=== PATIENT | female | born 1990 | race Caucasian/White ===

== ENCOUNTER 2017-03-09 18:44 | Emergency (ER) | payer SELFPAY ==
[2017-03-09 19:32] VITALS: BP 132/69; PULSE 78; RESP 16; TEMP 98.3; O2SAT 99
--- NOTE | 2017-03-09 20:22 | ED PDOC ---
Lower Extremity Pain/Injury Time Seen by Provider: 03/09/17 20:11 Chief Complaint (Nursing): Lower Extremity Problem/Injury Chief Complaint (Provider): Lower Extremity Problem/Injury History Per: Patient History/Exam Limitations: no limitations Onset/Duration Of Symptoms: Days Current Symptoms Are (Timing): Still Present Severity: Moderate Additional Complaint(s): Patient is a 26 year old female who presents to ED for evaluation of left ankle pain that began yesterday. Patient reports that yesterday she woke up with atraumatic left ankle pain, notes that she did do a significant amount of walking the day prior. Although she did a large amount of walking, she denies any trauma including twisting. States that the pain worsened today which prompted ED visit. Denies calf pain, trauma, swelling or SOB Past Medical History Reviewed: Historical Data, Nursing Documentation, Vital Signs Vital Signs: Last Vital Signs Temp 98.3 F 03/09/17 19:30 Pulse 78 03/09/17 19:30 Resp 16 03/09/17 19:30 BP 132/69 03/09/17 19:30 Pulse Ox 99 03/09/17 19:30 - Medical History PMH: Hypothyroidism Denies: Chronic Kidney Disease - Surgical History Surgical History: No Surg Hx - Family History Family History: States: No Known Family Hx - Home Medications Home Medications: Ambulatory Orders Medication Instructions Recorded No Known Home Med 04/11/16 - Allergies Allergies/Adverse Reactions: Allergies Allergy/AdvReac Type Severity Reaction Status Date / Time No Known Allergies Allergy Verified 03/09/17 19:30 Review of Systems Constitutional: Negative for: Fever Cardiovascular: Negative for: Chest Pain, Palpitations Respiratory: Negative for: Shortness of Breath Musculoskeletal: Positive for: Foot Pain. Negative for: Back Pain, Leg Pain Neurological: Negative for: Weakness, Numbness Physical Exam - Reviewed Nursing Documentation Reviewed: Yes Vital Signs Reviewed: Yes - Physical Exam Appears: Positive for: Non-toxic, No Acute Distress Skin: Positive for: Normal Color, Warm Eye Exam: Positive for: Normal appearance Neck: Positive for: Normal Pulses-Dorsalis Pedis (L): 2+ Extremity: Positive for: Normal ROM, Tenderness (LLE: Tenderness to medial left distal leg, just superior to medial malleolus, no malleola tenderness, swell, warmth or erythema), Capillary Refill (less than 2 seconds ). Negative for: Pedal Edema, Calf Tenderness (b/l), Deformity Neurologic/Psych: Positive for: Alert, Oriented. Negative for: Motor/Sensory Deficits - ECG O2 Sat by Pulse Oximetry: 99 (RA) Pulse Ox Interpretation: Normal - Radiology X-Ray: Interpreted by Me (Ankle x-ray) X-Ray Interpretation: No Acute Disease - Progress ED Course And Treament: Crutches provided. Medical Decision Making Medical Decision Making: Time: 2009 Initial Impression: Foot pain r/o fracture Initial Plan: -- Ankle Xray Scribe Attestation: Documented by Marielena James, acting as a scribe for Jr Woods PA-C. Provider Scribe Attestation: All medical record entries made by the Scribe were at my direction and personally dictated by me. I have reviewed the chart and agree that the record accurately reflects my personal performance of the history, physical exam, medical decision making, and the department course for this patient. I have also personally directed, reviewed, and agree with the discharge instructions and disposition. Disposition - Clinical Impression Clinical Impression: Ankle pain - Patient ED Disposition Is Patient to be Admitted: No - Disposition Referrals: Onesimo Villagomez DPM [Staff Provider] - Disposition: Routine/Home Disposition Time: 21:54 Condition: STABLE Instructions: Arthralgia (ED), RICE Therapy (ED), Crutch Instructions (ED) Print Language: HUNGARIAN
--- NOTE | 2017-03-10 12:05 | RAD ---
PROCEDURE: Left Ankle Radiographs. HISTORY: pain COMPARISON: None FINDINGS: BONES: Normal. No fracture. JOINTS: Normal. No osteoarthritis. Ankle mortise maintained. Talar dome intact SOFT TISSUES: Normal. OTHER FINDINGS: None. IMPRESSION: Normal left ankle radiographs.
== END 2017-03-09 21:58 | disposition home or self-care (01) ==
LOC: H.ER 18:44
DX: M25.572 Pain in left ankle and joints of left foot (principal); E03.9 Hypothyroidism, unspecified

== ENCOUNTER 2018-11-14 11:17 | Emergency (ER) | payer OTHER ==
[2018-11-14 11:26] VITALS: O2SAT 98
[2018-11-14] MEDS ORDERED: Sodium Chloride 0.9% 1,000 ML IV STA (11:51)
--- NOTE | 2018-11-14 11:53 | ED PDOC ---
HPI: Abdomen Time Seen by Provider: 11/14/18 11:29 Chief Complaint (Nursing): Abdominal Pain History Per: Patient Onset/Duration Of Symptoms: Days (2) Current Symptoms Are (Timing): Still Present Severity: Moderate Location Of Pain/Discomfort: Epigastric Quality Of Discomfort: Sharp Associated Symptoms: denies: Fever, Nausea, Vomiting, Diarrhea, Urinary Symptoms Exacerbating Factors: None Alleviating Factors: None Additional Complaint(s): Epigastric abd pain x 2 days. Denies NVD. Denies fever. Denies urinary sxs. Past Medical History Vital Signs: Last Vital Signs Temp 98.2 F 11/14/18 11:25 Pulse 79 11/14/18 11:25 Resp 14 11/14/18 11:25 BP 130/76 11/14/18 11:25 Pulse Ox 98 11/14/18 11:25 - Medical History PMH: Hypothyroidism Denies: Chronic Kidney Disease - Family History Family History: States: Unknown Family Hx - Home Medications Home Medications: Ambulatory Orders Medication Instructions Recorded Famotidine [Pepcid] 20 mg PO Q12 #20 tab 11/14/18 - Allergies Allergies/Adverse Reactions: Allergies Allergy/AdvReac Type Severity Reaction Status Date / Time No Known Allergies Allergy Verified 03/09/17 19:30 Review of Systems ROS Statement: Except As Marked, All Systems Reviewed And Found Negative Gastrointestinal: Positive for: Abdominal Pain Physical Exam - Reviewed Nursing Documentation Reviewed: Yes Vital Signs Reviewed: Yes - Physical Exam Appears: Positive for: Non-toxic, No Acute Distress Head Exam: Positive for: ATRAUMATIC, NORMAL INSPECTION, NORMOCEPHALIC Skin: Positive for: Normal Color, Warm, DRY Eye Exam: Positive for: Normal appearance, EOMI Neck: Positive for: Normal, Painless ROM Cardiovascular/Chest: Positive for: Regular Rate, Rhythm Respiratory: Positive for: CNT, Normal Breath Sounds Gastrointestinal/Abdominal: Positive for: Soft, Tenderness (Epigastric) Extremity: Positive for: Normal ROM Neurologic/Psych: Positive for: Alert, Oriented - Laboratory Results Result Diagrams: 11/14/18 12:20 11/14/18 13:20 - ECG O2 Sat by Pulse Oximetry: 98 Disposition - Clinical Impression Clinical Impression: Gastritis - Patient ED Disposition Is Patient to be Admitted: No Counseled Patient/Family Regarding: Studies Performed, Diagnosis, Need For Followup, Rx Given - Disposition Referrals: [facility] [Outside] Disposition: Routine/Home Disposition Time: 14:16 Condition: FAIR Prescriptions: Famotidine [Pepcid] 20 mg PO Q12 #20 tab Instructions: Gastritis Forms: [facility] (Nepali)
[2018-11-14 12:48] LABS: BASO % 0.6 % (0.0-2.0); EOS # 0.1 K/uL (0.0-0.7); EOS % 0.9 % (0.0-4.0); HEMOGLOBIN 14.1 g/dL (12.0-16.0); LYMPH # 1.6 K/uL (1.0-4.3); LYMPH % 26.2 % (20.0-40.0); MEAN CELL VOLUME 83.6 fl (81.0-99.0); MEAN CORPUSCULAR HGB CONC 33.5 g/dL (33.0-37.0); MONO # 0.4 K/uL (0.0-0.8); NEUT # 4.1 K/uL (1.8-7.0); NEUT % 66.3 % (50.0-75.0); RBC 5.03 Mil/uL (3.80-5.20); RED CELL DISTRIBUTION WIDTH 13.8 % (11.5-14.5); WHITE BLOOD COUNT 6.3 K/uL (4.8-10.8)
[2018-11-14 14:11] LABS: ALB/GLOB RATIO 1.2 (1.0-2.1); ALBUMIN 4.1 g/dL (3.5-5.0); ALT/SGPT 37 U/L (9-52); AST/SGOT 45 U/L (14-36); BLOOD UREA NITROGEN 11 mg/dl (7-17); CALCIUM 8.9 mg/dL (8.4-10.2); GFR NON-AFRICAN AMERICAN > 60
[2018-11-14 18:02] VITALS: BP 108/64; PULSE 70; RESP 18; TEMP 98.1
== END 2018-11-14 14:15 | disposition home or self-care (01) ==
LOC: H.ER 11:17
DX: K29.70 Gastritis, unspecified, without bleeding (principal); E03.9 Hypothyroidism, unspecified
CPT/HCPCS: 80053; 85025; 96374; 99284; J7030

== ENCOUNTER 2019-01-31 16:45 | Emergency (ER) | payer OTHER ==
[2019-01-31 17:30] VITALS: RESP 18
[2019-01-31] MEDS ORDERED: Iohexol 240 (50 ml) PO ONE (17:42)
[2019-01-31] MEDS ORDERED: Iohexol 240 (50 ml) ONE (17:54)
[2019-01-31 18:13] LABS: SQUAMOUS EPITHIAL 1 /hpf (0-5); URINE BILIRUBIN NEGATIVE (NEGATIVE); URINE BLOOD NEGATIVE (NEGATIVE); URINE CLARITY SLIGHTY-CLOUDY (Clear); URINE COLOR YELLOW (YELLOW); URINE GLUCOSE (UA) NEG (NEGATIVE); URINE LEUKOCYTE ESTERASE NEG Leu/uL (Negative); URINE PROTEIN NEGATIVE (NEGATIVE); URINE UROBILINOGEN 0.2-1.0 mg/dL (0.2-1.0)
[2019-01-31] MEDS: Sodium Chloride 0.9% 1,000 ML IV SCH ×5 (18:21→21:59)
[2019-01-31 18:33] LABS: BASO # 0.1 K/uL (0.0-0.2); BASO % 1.2 % (0.0-2.0); EOS # 0.2 K/uL (0.0-0.7); EOS % 2.6 % (0.0-4.0); HEMOGLOBIN 13.3 g/dL (12.0-16.0); LYMPH # 2.6 K/uL (1.0-4.3); LYMPH % 33.6 % (20.0-40.0); MEAN CELL VOLUME 80.9 fl (81.0-99.0); MEAN CORPUSCULAR HEMOGLOBIN 26.5 pg (27.0-31.0); MEAN CORPUSCULAR HGB CONC 32.7 g/dL (33.0-37.0); MEAN PLATELET VOLUME 8.1 fl (7.2-11.7); MONO # 0.4 K/uL (0.0-0.8); MONO % 4.7 % (0.0-10.0); NEUT # 4.4 K/uL (1.8-7.0); NEUT % 57.9 % (50.0-75.0); NRBC % 0.1 % (0.0-0.0); RBC 5.02 Mil/uL (3.80-5.20); RED CELL DISTRIBUTION WIDTH 14.5 % (11.5-14.5); WHITE BLOOD COUNT 7.6 K/uL (4.8-10.8)
[2019-01-31 18:45] LABS: ALBUMIN 4.4 g/dL (3.5-5.0); ALT/SGPT 24 U/L (9-52); AST/SGOT 41 U/L (14-36); BLOOD UREA NITROGEN 13 mg/dl (7-17); CALCIUM 9.4 mg/dL (8.4-10.2); GFR NON-AFRICAN AMERICAN > 60; LIPASE 162 U/L (23-300)
--- NOTE | 2019-01-31 19:43 | ED PDOC ---
HPI: Abdomen Time Seen by Provider: 01/31/19 17:45 Chief Complaint (Nursing): Abdominal Pain Chief Complaint (Provider): Abdominal Pain History Per: Patient History/Exam Limitations: no limitations Onset/Duration Of Symptoms: Days (x4) Current Symptoms Are (Timing): Still Present Severity: Moderate Pain Scale Rating Of: 7 Location Of Pain/Discomfort: LLQ Quality Of Discomfort: "Pain" Associated Symptoms: denies: Fever, Chills, Nausea, Vomiting, Diarrhea, Back Pain, Chest Pain, Constipation, Urinary Symptoms Exacerbating Factors: Movement, Walking Alleviating Factors: denies: None Additional Complaint(s): 28 y/o female with no significant PMHx presents to the ED for evaluation of a LLQ abdominal pain, onset four days ago. Patient notes of having a hard time to get up from bed due to pain. Otherwise, patient denies fever, nausea, vomiting, diarrhea, urinary complaints and constipation. Patient states last bowel movement was normal and appeared normal in color. Patient reports pain worsens with movement, walking and laying down. Patient notes he has not taken anything for pain. Patient is concerned for persistent pain. PMD: no provider Abnormal Vaginal Bleeding: No Past Medical History Reviewed: Historical Data, Nursing Documentation, Vital Signs Vital Signs: Last Vital Signs Temp 98.7 F 01/31/19 17:28 Pulse 73 01/31/19 17:28 Resp 18 01/31/19 17:28 BP 153/79 H 01/31/19 17:28 Pulse Ox 99 01/31/19 17:28 - Medical History PMH: Hypothyroidism Denies: Chronic Kidney Disease - Surgical History Surgical History: No Surg Hx - Family History Family History: States: Unknown Family Hx - Home Medications Home Medications: Ambulatory Orders Medication Instructions Recorded Famotidine [Pepcid] 20 mg PO Q12 #20 tab 11/14/18 - Allergies Allergies/Adverse Reactions: Allergies Allergy/AdvReac Type Severity Reaction Status Date / Time No Known Allergies Allergy Verified 01/31/19 17:28 Review of Systems ROS Statement: Except As Marked, All Systems Reviewed And Found Negative Constitutional: Negative for: Fever Gastrointestinal: Positive for: Abdominal Pain. Negative for: Nausea, Vomiting, Diarrhea, Constipation Genitourinary Female: Negative for: Dysuria, Frequency, Hematuria Physical Exam - Reviewed Nursing Documentation Reviewed: Yes Vital Signs Reviewed: Yes - Physical Exam Appears: Positive for: No Acute Distress Head Exam: Positive for: ATRAUMATIC, NORMOCEPHALIC Skin: Positive for: Normal Color, Warm, Dry Eye Exam: Positive for: Normal appearance, EOMI, PERRL Neck: Positive for: Normal, Painless ROM, Supple Cardiovascular/Chest: Positive for: Regular Rate, Rhythm. Negative for: Murmur Respiratory: Positive for: Normal Breath Sounds. Negative for: Respiratory Distress Gastrointestinal/Abdominal: Positive for: Soft, Tenderness (LLQ tenderness), Other (large, old stretch patino noted on skin. no redness or loose skin breakdown. Pain is non-radiating. ) Back: Positive for: Normal Inspection. Negative for: L CVA Tenderness, R CVA Tenderness, Vertebral Tenderness Extremity: Positive for: Normal ROM. Negative for: Deformity Neurological/Psych: Positive for: Awake, Alert, Oriented (x3). Negative for: Motor/Sensory Deficits - Laboratory Results Result Diagrams: 01/31/19 18:28 01/31/19 18:28 Lab Results: Total Bilirubin 0.3 mg/dl (0.2-1.3) 01/31/19 18:28 AST 41 U/L (14-36) H 01/31/19 18:28 ALT 24 U/L (9-52) 01/31/19 18:28 Alkaline Phosphatase 76 U/L (38-126) 01/31/19 18:28 Total Protein 8.8 G/DL (6.3-8.2) H 01/31/19 18:28 Albumin 4.4 g/dL (3.5-5.0) 01/31/19 18:28 Globulin 4.4 gm/dL (2.2-3.9) H 01/31/19 18:28 Albumin/Globulin Ratio 1.0 (1.0-2.1) 01/31/19 18:28 Lipase 162 U/L (23-300) 01/31/19 18:28 Urine Color Yellow (YELLOW) 01/31/19 17:55 Urine Clarity Slighty-cloudy (Clear) 01/31/19 17:55 Urine pH 5.0 (5.0-8.0) 01/31/19 17:55 Ur Specific [place] 1.024 (1.003-1.030) 01/31/19 17:55 Urine Protein Negative mg/dL (NEGATIVE) 01/31/19 17:55 Urine Glucose (UA) Neg mg/dL (NEGATIVE) 01/31/19 17:55 Urine Ketones Negative mg/dL (NEGATIVE) 01/31/19 17:55 Urine Blood Negative (NEGATIVE) 01/31/19 17:55 Urine Nitrate Negative (NEGATIVE) 01/31/19 17:55 Urine Bilirubin Negative (NEGATIVE) 01/31/19 17:55 Urine Urobilinogen 0.2-1.0 mg/dL (0.2-1.0) 01/31/19 17:55 Ur Leukocyte Esterase Neg Michelle/uL (Negative) 01/31/19 17:55 Urine RBC (Auto) 2 /hpf (0-3) 01/31/19 17:55 Urine Microscopic WBC 1 /hpf (0-5) 01/31/19 17:55 Ur Squamous Epith Cells 1 /hpf (0-5) 01/31/19 17:55 - ECG O2 Sat by Pulse Oximetry: 99 (RA) Pulse Ox Interpretation: Normal Medical Decision Making Medical Decision Making: Time: 1745 Impression: Abdominal Pain Plan: -- CT Abd/Pelvis with PO or IV Contrast -- CMP -- Lipase -- ED Urine -- CBC with Differentials -- Sodium Chloride IV 1000 mls/hr -- Iohexol 50 ml PO -- Toradol 15 mg IVP -- IV insertion -- Urinalysis 2000: PT HANDED OFF TO LEONARDA DUNNE TO FOLLOW-UP ON CT SCAN OF ABD/PELVIS. Scribe Attestation: Documented by Guero Trent, acting as a scribe SILVANA Lantigua. Provider Scribe Attestation: All medical record entries made by the Scribe were at my direction and personally dictated by me. I have reviewed the chart and agree that the record accurately reflects my personal performance of the history, physical exam, medical decision making, and the department course for this patient. I have also personally directed, reviewed, and agree with the discharge instructions and disposition. Disposition - Clinical Impression Clinical Impression: Abdominal pain - Patient ED Disposition Is Patient to be Admitted: No - Disposition Disposition: Transfer of Care Disposition Time: 20:00 Condition: STABLE Forms: [facility] (Nepali) Print Language: MAURITANIAN Patient Signed Over To: Marycruz Tracy Handoff Comments: FOLLOW UP ON CT ABD/PELVIS - POA Present On Arrival: None
[2019-01-31] MEDS ORDERED: Iohexol 300 100 ML IJ ONE (19:56)
[2019-01-31] MEDS ORDERED: Sodium Chloride 0.9% 50 ML IV ONE (19:56)
--- NOTE | 2019-01-31 22:11 | ED PDOC ---
- Laboratory Results Result Diagrams: 01/31/19 18:28 01/31/19 18:28 Lab Results: Total Bilirubin 0.3 mg/dl (0.2-1.3) 01/31/19 18:28 AST 41 U/L (14-36) H 01/31/19 18:28 ALT 24 U/L (9-52) 01/31/19 18:28 Alkaline Phosphatase 76 U/L (38-126) 01/31/19 18:28 Total Protein 8.8 G/DL (6.3-8.2) H 01/31/19 18:28 Albumin 4.4 g/dL (3.5-5.0) 01/31/19 18: Globulin 4.4 gm/dL (2.2-3.9) H 01/31/19 18:28 Albumin/Globulin Ratio 1.0 (1.0-2.1) 01/31/19 18:28 Lipase 162 U/L (23-300) 01/31/19 18:28 Urine Color Yellow (YELLOW) 01/31/19 17:55 Urine Clarity Slighty-cloudy (Clear) 01/31/19 17:55 Urine pH 5.0 (5.0-8.0) 01/31/19 17:55 Ur Specific [place] 1.024 (1.003-1.030) 01/31/19 17:55 Urine Protein Negative mg/dL (NEGATIVE) 01/31/19 17:55 Urine Glucose (UA) Neg mg/dL (NEGATIVE) 01/31/19 17:55 Urine Ketones Negative mg/dL (NEGATIVE) 01/31/19 17:55 Urine Blood Negative (NEGATIVE) 01/31/19 17:55 Urine Nitrate Negative (NEGATIVE) 01/31/19 17:55 Urine Bilirubin Negative (NEGATIVE) 01/31/19 17:55 Urine Urobilinogen 0.2-1.0 mg/dL (0.2-1.0) 01/31/19 17:55 Ur Leukocyte Esterase Neg Michelle/uL (Negative) 01/31/19 17:55 Urine RBC (Auto) 2 /hpf (0-3) 01/31/19 17:55 Urine Microscopic WBC 1 /hpf (0-5) 01/31/19 17:55 Ur Squamous Epith Cells 1 /hpf (0-5) 01/31/19 17:55 - ECG O2 Sat by Pulse Oximetry: 99 (RA) - Progress ED Course And Treament: Case endorsed to continuity writer from Alyssa BEAUCHAMP pending CT and re-eval EXAM: CT Abdomen and Pelvis with IV and oral contrast agent. CLINICAL HISTORY: Abd pain TECHNIQUE: Axial computed tomography images of the abdomen and pelvis with intravenous con trast. 849.98 mGy-cm CONTRAST: With; [id number] COMPARISON: Prior CT abdomen and pelvis examination and its report dated 03/22/2013 were reviewed. FINDINGS: LUNG BASES: The lung bases appear clear. No pleural effusions are seen. LIVER: There is hepatomegaly. The liver measured 17.8 cm in the midclavicular line. GALLBLADDER AND BILE DUCTS: The gallbladder appears within normal limits. No radioopaque gallstones are seen. No biliary ductal dilatation is evident. PANCREAS: Unremarkable. SPLEEN: Unremarkable. ADRENAL GLANDS: Unremarkable. KIDNEYS, URETERS, AND BLADDER: The kidneys appear within normal limits. There is no hydronephrosis or hydroureter. No urinary calculi are seen. The urinary bladder appeared normal in size and configuration. STOMACH AND BOWEL: Unremarkable appearance of the stomach and bowel. No evidence of bowel obstruction. No evidence suggesting enteritis or colitis. APPENDIX: No evidence of acute appendicitis on CT examination. PERITONEUM: No free fluid. No free air. LYMPH NODES: No lymphadenopathy is evident. REPRODUCTIVE: Multiple bilateral periuterine varices are noted which is suggestive of pelvic congestion syndrome. Beginning above the level of the umbilicus, a large homogeneous circumscribed mass with rich peripheral vascular supply is noted. This mass measures approximately 21.1 x 11.6 x 18.3 cm in craniocaudal, AP and transverse dimensions respectively. This ranged in density between 20.4-21.1 HU. This is likely compatible with a cystadenoma or cystadenocarcinoma of ovarian origin; possibly the right ovary. Surgical consultation could be considered. VASCULATURE: No evidence of abdominal aortic aneurysm. BONES: No aggressive appearing osseous lesion. No acute osseous pathology evident. IMPRESSION: 1. Hepatomegaly. 2. Very large lower-central abdominal-pelvic mass as described above; possibly of right ovarian origin. The possibility of cystadenoma or cystadenocarcinoma should be considered. Surgical consultation could be considered. 3. 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 Patient evaluated by Dr. Srinivasan, [employer] on-call; recommends close outpatient follow up, ibuprofen PRN pain, and strict return precautions given Patient educated on findings, discharged with rx ibuprofen Information for [employer] given on discharge papers, with instructions to call and make follow up appointment yvonne Return precautions given Disposition - Clinical Impression Clinical Impression: Abdominal pain, Pelvic mass - POA Present On Arrival: None - Disposition [facility]] Sonya Srinivasan MD [Staff Provider] - [facility] [Outside] Disposition: Routine/Home Disposition Time: 22:45 Condition: IMPROVED Prescriptions: Ibuprofen [Motrin Tab] 1 tab PO Q6 PRN #20 tab PRN Reason: Pain, Moderate (4-7) Instructions: Acute Abdomen (Belly Pain) Forms: [facility] (Estonian) Print Language: THAI
--- NOTE | 2019-01-31 23:04 | CP.PCM.CON ---
History of Present Illness - History of Present Illness History of Present Illness: Pt is a 28yo who presents to ER with left lower quadrant abdominal pain for past 4 days. Patient deneis N/V, no diarrhea, no fever, no CP, no SOB, just persistant left sided abdominal pain that was getting worse. 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 No ascietes, no other pertinent signs/symptoms Past Patient History - Past Social History Smoking Status: Never Smoked - CARDIAC Hx Cardiac Disorders: No - PULMONARY Hx Respiratory Disorders: No - NEUROLOGICAL Hx Neurological Disorder: No - HEENT Hx HEENT Problems: No - RENAL Hx Chronic Kidney Disease: No - ENDOCRINE/METABOLIC Hx Hypothyroidism: Yes - HEMATOLOGICAL/ONCOLOGICAL Hx Blood Disorders: No - INTEGUMENTARY Hx Dermatological Problems: No - MUSCULOSKELETAL/RHEUMATOLOGICAL Hx Musculoskeletal Disorders: No - GASTROINTESTINAL Hx Gastrointestinal Disorders: No - GENITOURINARY/GYNECOLOGICAL Hx Genitourinary Disorders: No - PSYCHIATRIC Hx Psychophysiologic Disorder: No Hx Substance Use: No - SURGICAL HISTORY Hx Surgeries: No - ANESTHESIA Hx Anesthesia: No Meds Home Medications: Home Medication List Medication Instructions Recorded Confirmed Type Ibuprofen [Motrin Tab] 1 tab PO Q6 PRN #20 tab 01/31/19 Rx Allergies/Adverse Reactions: Allergies Allergy/AdvReac Type Severity Reaction Status Date / Time No Known Allergies Allergy Verified 01/31/19 17:28 - Medications Medications: Current Medications Sodium Chloride (Sodium Chloride 0.9%) 1,000 mls @ 1,000 mls/hr IV .Q1H CLAUS Stop: 02/01/19 17:45 Last Admin: 01/31/19 21:59 Dose: Not Given Physical Exam - Head Exam Head Exam: NORMAL INSPECTION - Eye Exam Pupil Exam: PERRL - Respiratory Exam Respiratory Exam: NORMAL BREATHING PATTERN - Cardiovascular Exam Cardiovascular Exam: REGULAR RHYTHM - GI/Abdominal Exam GI & Abdominal Exam: Normal Bowel Sounds, Soft Additional comments: mild pain with deep palpation on left side, no rebound, no gaurding - Extremities Exam Extremities exam: Positive for: normal inspection Results - Vital Signs Recent Vital Signs: Last Vital Signs Temp 98.7 F 01/31/19 17:28 Pulse 73 01/31/19 17:28 Resp 18 01/31/19 17:28 BP 153/79 H 01/31/19 17:28 Pulse Ox 99 01/31/19 22:45 - Labs Result Diagrams: 01/31/19 18:28 01/31/19 18:28 Labs: Laboratory Results - last 24 hr 01/31/19 01/31/19 01/31/19 17:55 18:28 18:28 WBC 7.6 RBC 5.02 Hgb 13.3 Hct 40.6 MCV 80.9 L D MCH 26.5 L MCHC 32.7 L RDW 14.5 Plt Count 355 MPV 8.1 Neut % (Auto) 57.9 Lymph % (Auto) 33.6 [place] % (Auto) 4.7 Eos % (Auto) 2.6 Baso % (Auto) 1.2 Neut # (Auto) 4.4 Lymph # (Auto) 2.6 [place] # (Auto) 0.4 Eos # (Auto) 0.2 Baso # (Auto) 0.1 Sodium 138 Potassium 4.1 Chloride 100 Carbon Dioxide 27 Anion Gap 15 BUN 13 Creatinine 0.6 L Est GFR ( Amer) > 60 Est GFR (Non-Af Amer) > 60 Random Glucose 93 Calcium 9.4 Total Bilirubin 0.3 AST 41 H ALT 24 Alkaline Phosphatase 76 Total Protein 8.8 H Albumin 4.4 Globulin 4.4 H Albumin/Globulin Ratio 1.0 Lipase 162 Urine Color Yellow Urine Clarity Slighty-cloudy Urine pH 5.0 Ur Specific [place] 1.024 Urine Protein Negative Urine Glucose (UA) Neg Urine Ketones Negative Urine Blood Negative Urine Nitrate Negative Urine Bilirubin Negative Urine Urobilinogen 0.2-1.0 Ur Leukocyte Esterase Neg Urine RBC (Auto) 2 Urine Microscopic WBC 1 Ur Squamous Epith Cells 1 Assessment & Plan - Assessment and Plan (Free Text) Assessment: A/P 28 yo with 20cm with 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 Patient not presenting with an acute abdomen, patient otherwise comfortable. Patient presents with no other symptoms 2. Discussed with patient that the scan shows what looks to be consistant with a benign structure, however certainly should be removed surgically at earliest time possible. No radiological findings are present at this time that suggest malignant pathology, however at the time of surgical removal, all options should be considered including possible evaluation of building construction contractor oncologist. 3. Patient is at present time applying for insurance - options given to patient as to which offices she would be able to follow up in 4. Pain precautions given to patient and instructions to follow up in ER immediately. Otherwise this surgery can be scheduled as outpatient. 5. Consultation appreciated - Date & Time Date: 01/31/19 Time: 23:03
[2019-02-01 02:29] VITALS: BP 127/79; PULSE 67; TEMP 97.9; O2SAT 100
--- NOTE | 2019-02-01 10:39 | CT ---
Date of service: 01/31/2019 PROCEDURE: CT Abdomen and Pelvis with contrast HISTORY: abd pain COMPARISON: Abdomen and pelvis CT with contrast 03/22/2013. TECHNIQUE: Following oral and intravenous contrast administration, a CT examination of the abdomen and pelvis was performed from the domes of the diaphragms to the symphysis pubis with reformatted datasets provided not only axial but also sagittal and coronal series. Contrast dose: Omnipaque 300, 95 cc Radiation dose: Total exam DLP = 849.98 mGy-cm. This CT exam was performed using one or more of the following dose reduction techniques: Automated exposure control, adjustment of the mA and/or kV according to patient size, and/or use of iterative reconstruction technique. FINDINGS: LOWER THORAX: Unremarkable. LIVER: Diminished attenuation is appreciated throughout the liver compatible mild but diffuse hepatic steatosis. No definite mass or intrahepatic biliary dilatation is identified. GALLBLADDER AND BILE DUCTS: Unremarkable. PANCREAS: Unremarkable. No gross lesion or ductal dilatation. SPLEEN: Unremarkable. ADRENALS: Unremarkable. No mass. KIDNEYS AND URETERS: Unremarkable. No hydronephrosis. No solid mass. VASCULATURE: Unremarkable. No aortic aneurysm. No aortic atherosclerotic calcification or mural plaque present. BOWEL: Moderate fecal loading is seen at the right hemicolon. No overt pattern to suggest colitis or enteritis. Stomach is mildly distended with retained food contrast and otherwise appears unremarkable no obstruction. No gross mural thickening. APPENDIX: Normal appendix. PERITONEUM: No ascites or free intra peritoneal gas. Limited mesenteric reaction is seen lateral to large cystic mass in the pelvis at the right lower quadrant. LYMPH NODES: Unremarkable. No enlarged lymph nodes. BLADDER: Unremarkable. REPRODUCTIVE: There is a large mass (19.4 x 12.3 x 21.4 cm, transverse by anteroposterior by superoinferior dimensions) occupying the upper mid pelvis and midline mid inferior abdomen measuring low 20s Hounsfield units with definitive areas enhancement in the periphery versus calcifications the latter not favored given branching pattern related to hyperdense linear structures occasionally entering into the central portion of the lesion. The left ovary is not identified. The right ovary is questioned in images 157 and 158 series 3 superolateral to the uterine body. Consider possible large left ovarian mass though a right ovarian mass is not completely excluded. Moderate engorgement of the left greater than right pelvic venous system suggestive of congestion. BONES: No acute fracture. OTHER FINDINGS: None. IMPRESSION: 21.4 cm hypodense mass at the midline to right paracentral lower abdomen and upper mid pelvis suspicious for left or right adnexal mass including potential cystadenoma or cystadenocarcinoma. Pelvic congestion pattern noted. Surgical consultation recommended. Hepatic steatosis. Concordant preliminary report from [facility], 01/31/2019, 9:11 p.m..
== END 2019-01-31 23:15 | disposition home or self-care (01) ==
LOC: H.ER 16:45
DX: R10.9 Unspecified abdominal pain (principal); R19.07 Generalized intra-abdominal and pelvic swelling, mass and lump; E03.9 Hypothyroidism, unspecified; K76.0 Fatty (change of) liver, not elsewhere classified
CPT/HCPCS: 74177; 80053; 81003; 81025; 83690; 85025; 96361; 96374; 99284; J1885; J7030; Q9966; Q9967

== ENCOUNTER 2019-04-01 16:34 | Emergency (ER) | payer MEDICAID, OTHER ==
--- NOTE | 2019-04-01 17:46 | ED PDOC ---
HPI: Abdomen Time Seen by Provider: 04/01/19 16:55 Chief Complaint (Nursing): Abdominal Pain Chief Complaint (Provider): abdominal pain History Per: Patient History/Exam Limitations: no limitations Additional Complaint(s): 28 y/o Female with hx of hypothyroidism and recently diagnosed cystadenoma vs cystadenocarcinoma on 01/31/19 who presents with worsening pelvic pain x 2 weeks. Pt states that she was told to take Naproxen and Ibuprofen for pain. She has not taken any in 2 weeks as it was not helping. Over the past 2 weeks, she has had worsening pain with cramping that occurs after walking a couple of blocks. Denie s fever, chills, N/V, diarrhea. Pain improves when she rests. She came for further evaluation due to persistent pain. She had 2 episodes of vaginal bleeding 2 days ago but has not had a menstrual period in 3 months. Has not taken thyroid medications in several months due to losing her insurance. Fur ther, she has not followed up with any head cleaning porter due to insurance issues but her insurance is now active. Past Medical History Reviewed: Historical Data, Nursing Documentation, Vital Signs Vital Signs: Last Vital Signs Temp 98 F 04/01/19 16:53 Pulse 88 04/01/19 16:53 Resp 16 04/01/19 16:53 BP 116/68 04/01/19 16:53 Pulse Ox 100 04/01/19 16:53 Primary Care Provider: Non [facility] Provider, - Medical History PMH: Hypothyroidism Denies: Chronic Kidney Disease - Family History Family History: States: Unknown Family Hx - Home Medications Home Medications: Ambulatory Orders Medication Instructions Recorded Famotidine [Pepcid] 20 mg PO Q12 #20 tab 11/14/18 Ibuprofen [Motrin Tab] 1 tab PO Q6 PRN #20 tab 01/31/19 - Allergies Allergies/Adverse Reactions: Allergies Allergy/AdvReac Type Severity Reaction Status Date / Time No Known Allergies Allergy Verified 01/31/19 17:28 Review of Systems Constitutional: Negative for: Fever, Chills Gastrointestinal: Negative for: Nausea, Vomiting, Abdominal Pain, Diarrhea, Constipation, Hematochezia Genitourinary Female: Positive for: Vaginal Bleeding, Pelvic Pain. Negative for: Dysuria, Frequency, Hematuria, Vaginal Discharge Physical Exam - Reviewed Nursing Documentation Reviewed: Yes Vital Signs Reviewed: Yes - Physical Exam Appears: Positive for: Uncomfortable Cardiovascular/Chest: Positive for: Regular Rate, Rhythm Respiratory: Positive for: Normal Breath Sounds Gastrointestinal/Abdominal: Positive for: Tenderness (RLQ, LLQ, suprapubic tenderness) Pelvic Exam: Positive for: Other (deferred) Neurological/Psych: Positive for: Awake, Alert, Oriented - Laboratory Results Result Diagrams: 04/01/19 20:30 04/01/19 20:25 - ECG O2 Sat by Pulse Oximetry: 100 Medical Decision Making Medical Decision Making: CBC, CMP, TFTs U/A, urine culture CT abd/pelvis with IV contrast Transvaginal U/S Toradol 30mg IV x 1 20:00: patient endorsed to QUYNH Shah pending lab work an CT/ultrasound results and re-evaluation Disposition - Clinical Impression Clinical Impression: Abdominal cramps - Patient ED Disposition Is Patient to be Admitted: Transfer of Care ([facility] Shah) - Disposition Disposition: Transfer of Care Disposition Time: 20:00 Condition: FAIR Forms: [employer] (Setswana)
[2019-04-01 17:55] LABS: SQUAMOUS EPITHIAL 5 /hpf (0-5); URINE AMORPHOUS SEDIMENT RARE /ul (<OCC); URINE BACTERIA RARE (<OCC); URINE BILIRUBIN NEGATIVE (NEGATIVE); URINE BLOOD NEGATIVE (NEGATIVE); URINE CLARITY CLOUDY (Clear); URINE COLOR YELLOW (YELLOW); URINE GLUCOSE (UA) NEG (NEGATIVE); URINE LEUKOCYTE ESTERASE SMALL Leu/uL (Negative); URINE PROTEIN 30 mg/dL (NEGATIVE); URINE UROBILINOGEN 0.2-1.0 mg/dL (0.2-1.0)
[2019-04-01 19:40] LABS: T3 1.05 nmol/L (1.49-2.60)
[2019-04-01 20:36] LABS: BASO % 0.7 % (0.0-2.0); EOS # 0.1 K/uL (0.0-0.7); EOS % 1.7 % (0.0-4.0); HEMOGLOBIN 13.6 g/dL (12.0-16.0); LYMPH # 2.1 K/uL (1.0-4.3); LYMPH % 35.2 % (20.0-40.0); MEAN CELL VOLUME 80.2 fl (81.0-99.0); MEAN CORPUSCULAR HEMOGLOBIN 26.6 pg (27.0-31.0); MEAN CORPUSCULAR HGB CONC 33.1 g/dL (33.0-37.0); MEAN PLATELET VOLUME 8.6 fl (7.2-11.7); MONO # 0.4 K/uL (0.0-0.8); MONO % 6.2 % (0.0-10.0); NEUT # 3.3 K/uL (1.8-7.0); NEUT % 56.2 % (50.0-75.0); RBC 5.14 Mil/uL (3.80-5.20); RED CELL DISTRIBUTION WIDTH 15.3 % (11.5-14.5); WHITE BLOOD COUNT 5.9 K/uL (4.8-10.8)
[2019-04-01 20:37] LABS: ALB/GLOB RATIO 1.2 (1.0-2.1); ALBUMIN 4.1 g/dL (3.5-5.0); ALT/SGPT 18 U/L (9-52); AST/SGOT 28 U/L (14-36); BLOOD UREA NITROGEN 11 mg/dl (7-17); CALCIUM 8.8 mg/dL (8.4-10.2); GFR NON-AFRICAN AMERICAN > 60; LIPASE 155 U/L (23-300)
[2019-04-01] MEDS ORDERED: Iohexol 300 100 ML IJ ONE (21:14)
[2019-04-01] MEDS ORDERED: Sodium Chloride 0.9% 50 ML IV ONE (21:14)
[2019-04-02 02:14] VITALS: BP 120/75; PULSE 61; RESP 17; TEMP 98; O2SAT 98
--- NOTE | 2019-04-02 02:59 | CP.PCM.CON ---
<Kashif Camacho - Last Filed: 04/02/19 03:31> History of Present Illness - History of Present Illness History of Present Illness: 28 y/o F with PMHx of hypothyroidism, recently diagnosed cystadenoma vs cystadenocarcinoma on 01/31/19 presents to ED with 2 weeks of pelvic pain. Patient reports she started having bloating, lower abdominal pain started 2 months ago. Patient tried taking naproxen and ibuprofen for pain. Patient came to ED on 01/31/[address] scan was done showed ~20 cm pelvic mass for which patient was referred to outpatient [facility] for further evaluation. Due to insurance problems patient did not follow up with Ob-materials planner. Patient's insurance is active from today onwards. For past 2 weeks patient reports worsening of lower abdominal pain/pelvic pain, cramping pain which worsens after walking few blocks/running/exercising. Patient tried pain medications w/o improvement. Denies any current vaginal bleeding, vaginal discharge, urinary symptoms, fever, chills, N/V, diarrhea. Patient is not taking thyroid medication for past 1 year. 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 PMHx: Hypothyroidism PSHx: Denies Allergies: NKDA F/H: HTN: Thyroid disease GF: Lung cancer SocialHx: Social alcohol, Denies smoking/drugs Review of Systems - Gastrointestinal Gastrointestinal: Bloating - Reproductive: Female Reproductive:Female: Pelvic Pain Past Patient History - Infectious Disease Hx of Infectious Diseases: None - Past Social History Smoking Status: Never Smoked - CARDIAC Hx Cardiac Disorders: No - PULMONARY Hx Respiratory Disorders: No - NEUROLOGICAL Hx Neurological Disorder: No - HEENT Hx HEENT Problems: No - RENAL Hx Chronic Kidney Disease: No - ENDOCRINE/METABOLIC Hx Hypothyroidism: Yes - HEMATOLOGICAL/ONCOLOGICAL Hx Blood Disorders: No - INTEGUMENTARY Hx Dermatological Problems: No - MUSCULOSKELETAL/RHEUMATOLOGICAL Hx Musculoskeletal Disorders: No - GASTROINTESTINAL Hx Gastrointestinal Disorders: No - GENITOURINARY/GYNECOLOGICAL Hx Genitourinary Disorders: No - PSYCHIATRIC Hx Psychophysiologic Disorder: No Hx Substance Use: No - SURGICAL HISTORY Hx Surgeries: No - ANESTHESIA Hx Anesthesia: No Meds Home Medications: Home Medication List Medication Instructions Recorded Confirmed Type Naproxen 500 mg PO Q12H #30 tablet 04/02/19 Rx Allergies/Adverse Reactions: Allergies Allergy/AdvReac Type Severity Reaction Status Date / Time No Known Allergies Allergy Verified 01/31/19 17:28 Physical Exam - Constitutional Appears: No Acute Distress - Head Exam Head Exam: ATRAUMATIC, NORMAL INSPECTION, NORMOCEPHALIC - Eye Exam Eye Exam: EOMI, PERRL - ENT Exam ENT Exam: Mucous Membranes Moist - Neck Exam Neck exam: Positive for: Normal Inspection - Respiratory Exam Respiratory Exam: Clear to Auscultation Bilateral, NORMAL BREATHING PATTERN - Cardiovascular Exam Cardiovascular Exam: REGULAR RHYTHM, +S1, +S2 - GI/Abdominal Exam GI & Abdominal Exam: Distended, Mass, Normal Bowel Sounds, Soft. absent: Guarding, Tenderness - Back Exam Back exam: NORMAL INSPECTION - Neurological Exam Neurological exam: Alert, Oriented x3 - Psychiatric Exam Psychiatric exam: Normal Affect, Normal Mood - Skin Skin Exam: Dry, Intact, Normal Color, Warm Results - Vital Signs Recent Vital Signs: Last Vital Signs Temp 98.0 F 04/02/19 02:14 Pulse 61 04/02/19 02:14 Resp 17 04/02/19 02:14 BP 120/75 04/02/19 02:14 Pulse Ox 98 04/02/19 02:14 - Labs Result Diagrams: 04/01/19 20:30 04/01/19 20:25 Labs: Laboratory Results - last 24 hr 04/01/19 04/01/19 04/01/19 17:07 18:20 20:25 WBC RBC Hgb Hct MCV MCH MCHC RDW Plt Count MPV Neut % (Auto) Lymph % (Auto) [place] % (Auto) Eos % (Auto) Baso % (Auto) Neut # (Auto) Lymph # (Auto) [place] # (Auto) Eos # (Auto) Baso # (Auto) Sodium 137 Potassium 4.0 Chloride 103 Carbon Dioxide 24 Anion Gap 14 BUN 11 Creatinine 0.7 Est GFR ( Amer) > 60 Est GFR (Non-Af Amer) > 60 Random Glucose 75 Calcium 8.8 Total Bilirubin 0.3 AST 28 ALT 18 Alkaline Phosphatase 54 Total Protein 7.7 Albumin 4.1 Globulin 3.5 Albumin/Globulin Ratio 1.2 Lipase 155 Thyroxine (T4) 8.55 Total T3 1.05 L TSH 3rd Generation 2.67 Urine Color Yellow Urine Clarity Cloudy Urine pH 7.0 Ur Specific [place] 1.025 Urine Protein 30 Urine Glucose (UA) Neg Urine Ketones Negative Urine Blood Negative Urine Nitrate Negative Urine Bilirubin Negative Urine Urobilinogen 0.2-1.0 Ur Leukocyte Esterase Small Urine RBC (Auto) 3 Urine Microscopic WBC 6 H Ur Squamous Epith Cells 5 Amorphous Sediment Rare H Urine Bacteria Rare 04/01/19 20:30 WBC 5.9 RBC 5.14 Hgb 13.6 Hct 41.2 MCV 80.2 L MCH 26.6 L MCHC 33.1 RDW 15.3 H Plt Count 268 MPV 8.6 Neut % (Auto) 56.2 Lymph % (Auto) 35.2 [place] % (Auto) 6.2 Eos % (Auto) 1.7 Baso % (Auto) 0.7 Neut # (Auto) 3.3 Lymph # (Auto) 2.1 [place] # (Auto) 0.4 Eos # (Auto) 0.1 Baso # (Auto) 0.0 Sodium Potassium Chloride Carbon Dioxide Anion Gap BUN Creatinine Est GFR ( Amer) Est GFR (Non-Af Amer) Random Glucose Calcium Total Bilirubin AST ALT Alkaline Phosphatase Total Protein Albumin Globulin Albumin/Globulin Ratio Lipase Thyroxine (T4) Total T3 TSH 3rd Generation Urine Color Urine Clarity Urine pH Ur Specific [place] Urine Protein Urine Glucose (UA) Urine Ketones Urine Blood Urine Nitrate Urine Bilirubin Urine Urobilinogen Ur Leukocyte Esterase Urine RBC (Auto) Urine Microscopic WBC Ur Squamous Epith Cells Amorphous Sediment Urine Bacteria Assessment & Plan - Assessment and Plan (Free Text) Assessment: A/P 28 yo with 20cm with possible cystoadenoma CT Abd/Pelvis 04/01/19 consistent with 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 US Pelvis: Large complex partially cystic mass in the central pelvis, which is consistent with findings on CT scan on 04/01/19. Uterus grossly within normal limit, Right ovary unremarkable. left ovary not visualized. Plan: - Not acute abdomen, patient comfortable in bed w/o acute distress - Patient counseled about CT and US abdomen findings consistent with large cystic structure which needs to be surgically removed at earliest. Patient informed about possibility of benign vs malignant pathology however further testing required to confirm diagnosis. Will order CA 125, CA 19-9, Inhibin, BHCG, AFP for further evaluation. - Patient to F/U [facility], Dr. Sow for follow up for blood test results within 1 week. - Patient informed about possible surgical options and need for materials planner vs gynoncologist follow up for further evaluation. Patient verbalized understanding. Case discussed with Dr. Alcantar and ER physician. Kashif Camacho, PGY1 <Tristan Alcantar - Last Filed: 04/02/19 20:02> Results - Vital Signs Recent Vital Signs: Last Vital Signs Temp 98.0 F 04/02/19 02:14 Pulse 61 04/02/19 02:14 Resp 17 04/02/19 02:14 BP 120/75 04/02/19 02:14 Pulse Ox 98 04/02/19 04:18 - Labs Result Diagrams: 04/01/19 20:30 04/01/19 20:25 Labs: Laboratory Results - last 24 hr 04/01/19 04/01/19 04/02/19 20:25 20:30 03:40 WBC 5.9 RBC 5.14 Hgb 13.6 Hct 41.2 MCV 80.2 L MCH 26.6 L MCHC 33.1 RDW 15.3 H Plt Count 268 MPV 8.6 Neut % (Auto) 56.2 Lymph % (Auto) 35.2 [place] % (Auto) 6.2 Eos % (Auto) 1.7 Baso % (Auto) 0.7 Neut # (Auto) 3.3 Lymph # (Auto) 2.1 [place] # (Auto) 0.4 Eos # (Auto) 0.1 Baso # (Auto) 0.0 Sodium 137 Potassium 4.0 Chloride 103 Carbon Dioxide 24 Anion Gap 14 BUN 11 Creatinine 0.7 Est GFR ( Amer) > 60 Est GFR (Non-Af Amer) > 60 Random Glucose 75 Calcium 8.8 Total Bilirubin 0.3 AST 28 ALT 18 Alkaline Phosphatase 54 Total Protein 7.7 Albumin 4.1 Globulin 3.5 Albumin/Globulin Ratio 1.2 Lipase 155 Alpha Fetoprotein 3.4 CA 19-9 Antigen CA 125 Antigen Beta HCG, Quant 04/02/19 03:40 WBC RBC Hgb Hct MCV MCH MCHC RDW Plt Count MPV Neut % (Auto) Lymph % (Auto) [place] % (Auto) Eos % (Auto) Baso % (Auto) Neut # (Auto) Lymph # (Auto) [place] # (Auto) Eos # (Auto) Baso # (Auto) Sodium Potassium Chloride Carbon Dioxide Anion Gap BUN Creatinine Est GFR ( Amer) Est GFR (Non-Af Amer) Random Glucose Calcium Total Bilirubin AST ALT Alkaline Phosphatase Total Protein Albumin Globulin Albumin/Globulin Ratio Lipase Alpha Fetoprotein CA 19-9 Antigen 8.8 CA 125 Antigen 23.5 Beta HCG, Quant < 2.39 Attending/Attestation - Attestation I have personally seen and examined this patient.: Yes I have fully participated in the care of the patient.: Yes I have reviewed all pertinent clinical information: Yes
--- NOTE | 2019-04-02 03:16 | ED PDOC ---
- Laboratory Results Result Diagrams: 04/01/19 20:30 04/01/19 20:25 Lab Results: Total Bilirubin 0.3 mg/dl (0.2-1.3) 04/01/19 20:25 AST 28 U/L (14-36) 04/01/19 20:25 ALT 18 U/L (9-52) 04/01/19 20:25 Alkaline Phosphatase 54 U/L (38-126) 04/01/19 20:25 Total Protein 7.7 G/DL (6.3-8.2) 04/01/19 20:25 Albumin 4.1 g/dL (3.5-5.0) 04/01/19 20:25 Globulin 3.5 gm/dL (2.2-3.9) 04/01/19 20:25 Albumin/Globulin Ratio 1.2 (1.0-2.1) 04/01/19 20:25 Lipase 155 U/L (23-300) 04/01/19 20:25 Urine Color Yellow (YELLOW) 04/01/19 17:07 Urine Clarity Cloudy (Clear) 04/01/19 17:07 Urine pH 7.0 (5.0-8.0) 04/01/19 17:07 Ur Specific [place] 1.025 (1.003-1.030) 04/01/19 17:07 Urine Protein 30 mg/dL (NEGATIVE) 04/01/19 17:07 Urine Glucose (UA) Neg mg/dL (NEGATIVE) 04/01/19 17:07 Urine Ketones Negative mg/dL (NEGATIVE) 04/01/19 17:07 Urine Blood Negative (NEGATIVE) 04/01/19 17:07 Urine Nitrate Negative (NEGATIVE) 04/01/19 17:07 Urine Bilirubin Negative (NEGATIVE) 04/01/19 17:07 Urine Urobilinogen 0.2-1.0 mg/dL (0.2-1.0) 04/01/19 17:07 Ur Leukocyte Esterase Small Michelle/uL (Negative) 04/01/19 17:07 Urine RBC (Auto) 3 /hpf (0-3) 04/01/19 17:07 Urine Microscopic WBC 6 /hpf (0-5) H 04/01/19 17:07 Ur Squamous Epith Cells 5 /hpf (0-5) 04/01/19 17:07 Amorphous Sediment Rare /ul (<OCC) H 04/01/19 17:07 Urine Bacteria Rare (<OCC) 04/01/19 17:07 Urine POC: Negative - ECG O2 Sat by Pulse Oximetry: 98 Medical Decision Making Medical Decision Making: --20:00 patient endorsed to me by Sharon reyna. Pending CT scan abd/pelvis report and T ransvaginal report. Patient is 28 year old female with worsening pelvic pain for 2 weeks. Patient was seen on 01/31/2019 and dx with having a cystic adenoma in the pelvis. patient was due to follow up but did not because she did not have insurance. Patient denies fever, nausea, vomiting. last lmp 3 months. hx of irregular periods. [id number]. 23:00 Pelvic exam normal. Neg for adenxa or cervical motion tenderness. scant amount of vaginal fluid. Neg for redness to cevix. os is closed. 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 pending consult. Name: STONE GRACE Exam Date: April 01, 2019 9:21:25 PM EDT Modality Type: CT\SR Description: CT - ABDOMEN AND PELVIS Gender: F Laterality: Not applicable : 89 Referring Physician: Emergency Room direct number EXAM: CT Abdomen and Pelvis with IV contrast CLINICAL HISTORY: Hx of cystadenoma TECHNIQUE: Axial computed tomography images of the abdomen and pelvis with intravenous contrast. 931.48 mGy-cm CONTRAST: With; [id number] 95ML COMPARISON: Comparison is made to prior CT abdomen and pelvis examination dated 01/31/2019. Also, the report was reviewed. FINDINGS: LUNG BASES: The lung bases appear clear. No pleural effusions are seen. LIVER: Unremarkable. GALLBLADDER AND BILE DUCTS: The gallbladder appears within normal limits. No radioopaque gallstones are seen. No biliary ductal dilatation is evident. PANCREAS: Unremarkable. SPLEEN: Unremarkable. ADRENAL GLANDS: Unremarkable. KIDNEYS, URETERS, AND BLADDER: The kidneys appear within normal limits. There is no hydronephrosis or hydroureter. No urinary calculi are seen. The urinary bladder appeared normal in size and configuration. STOMACH AND BOWEL: Unremarkable appearance of the stomach. No evidence of bowel obstruction. There is mucosal wall thickening of the duodenum and entire small bowel intestinal tract with fluid throughout the lumen compatible with diffuse enteritis. Infectious or inflammatory etiologies are thought most likely. No evidence suggesting colitis. APPENDIX: No evidence of acute appendicitis on CT examination. PERITONEUM: No free fluid. No free air. As previously described, a large 23.2 x 12.9 x 21.0 cm hypodense mass containing multiple internal septations is again demonstrated. This appears to arise from the pelvis and is again thought likely compatible with ovarian cystadenoma or cystadenocarcinoma. The mass ranges in density between 18.2-25.0 HU. LYMPH NODES: No lymphadenopathy is evident. REPRODUCTIVE: The uterus appears normal in size and position. Periuterine varices are again identified which may indicate pelvic congestion syndrome. VASCULATURE: No evidence of abdominal aortic aneurysm. BONES: No aggressive appearing osseous lesion. No acute osseous pathology evident. IMPRESSION: 1. Evidence of diffuse enteritis. 2. Suspected large ovarian cystadenoma or cystadenocarcinoma again noted. 3. Periuterine varices are noted. The possibility of pelvic congestion syndrome should be considered. Electronically signed on April 01, 2019 10:18:48 PM EDT by: Maxim Andrea M.D., M.B.A., Certified By [employer] Trained MRI and CT Specialist --patient states she has been having intermittent episodes of diarrhea for s everal weeks. She reports she travelled to [place] but she already had diarrhea prior to travelling. Denies fever, abdominal pain, nausea, vomiting. 03:[address] Alcantar and Kashif starr resident. Recommended to get tumor markers, D/C with information to the [facility] for follow-up. Kashif medina resident will send an email for clinic to notify about patient. will follow-up on tumor markers. Referral to [facility] for follow-up on thyroid treatment and further medical necessities. patient informed of plan. states understanding and agrees with plan. Disposition - Clinical Impression Clinical Impression: Pelvic mass - POA Present On Arrival: None - Disposition Referrals: Damari Tripathi MD [Staff Provider] - [facility] [Outside] [facility] [Outside] Disposition: Routine/Home Disposition Time: 03:15 Condition: GOOD Additional Instructions: Please call and make appointment to see Dr. Rosmery Casillas at the [facility] on Thursday. Prescriptions: Naproxen 500 mg PO Q12H #30 tablet Instructions: Acute Pelvic Pain (DC) Forms: [facility] ([employer])
--- NOTE | 2019-04-02 08:13 | CT ---
Date of service: 04/01/2019 PROCEDURE: CT Abdomen and Pelvis with contrast HISTORY: hx of cystadenoma, worsening pain COMPARISON: 01/31/2019 TECHNIQUE: Contrast dose: Radiation dose: Total exam DLP = 931.48 mGy-cm. This CT exam was performed using one or more of the following dose reduction techniques: Automated exposure control, adjustment of the mA and/or kV according to patient size, and/or use of iterative reconstruction technique. FINDINGS: LOWER THORAX: Unremarkable. LIVER: Unremarkable. No gross lesion or ductal dilatation. GALLBLADDER AND BILE DUCTS: Unremarkable. PANCREAS: Unremarkable. No gross lesion or ductal dilatation. SPLEEN: Unremarkable. ADRENALS: Unremarkable. No mass. KIDNEYS AND URETERS: Unremarkable. No hydronephrosis. No solid mass. VASCULATURE: Unremarkable. No aortic aneurysm. No aortic atherosclerotic calcification or mural plaque present. BOWEL: Unremarkable. No obstruction. No gross mural thickening. APPENDIX: Normal appendix. PERITONEUM: Unremarkable. No free fluid. No free air. LYMPH NODES: Unremarkable. No enlarged lymph nodes. BLADDER: Unremarkable. REPRODUCTIVE: No significant change in a roughly 21 centimeter cystic mass in the pelvis with enhancement and septations suspicious for an ovarian cystadenoma or cystadenocarcinoma. BONES: No acute fracture. OTHER FINDINGS: None. IMPRESSION: No significant change in a roughly 21 centimeter cystic mass in the pelvis with enhancement and septations suspicious for an ovarian cystadenoma or cystadenocarcinoma. Recommend surgical excision.
--- NOTE | 2019-04-02 08:57 | US ---
Date of service: 04/01/2019 PROCEDURE: HISTORY: r/o ovarian torsion COMPARISON: None TECHNIQUE: FINDINGS: The uterus measures 7.7 x 3.2 x 3.8 centimeters. The endometrium measures 6 millimeters. The right ovary measures 2.3 x 1.7 centimeters. Large complex cystic structure in the pelvis measuring up to 22 centimeters. No significant free fluid the pelvis. IMPRESSION: As above.
== END 2019-04-02 03:44 | disposition home or self-care (01) ==
LOC: H.ER 16:34
DX: R10.9 Unspecified abdominal pain (principal); E03.9 Hypothyroidism, unspecified; R19.00 Intra-abdominal and pelvic swelling, mass and lump, unspecified site
CPT/HCPCS: 74177; 76830; 80053; 81003; 81025; 82105; 82397; 83690; 84436; 84443; 84480; 84702; 85025; 86301; 86304; 87086; 96374; 99285; J1885; Q9967